=== PATIENT | female | born 1995 | race Caucasian/White ===

== ENCOUNTER 2020-01-22 18:40 | Emergency (ER) | payer OTHER, SELFPAY ==
[2020-01-22 18:52] VITALS: BP 125/71; PULSE 67; RESP 16; TEMP 37.2; O2SAT 100
--- NOTE | 2020-01-22 19:11 | ED.GENADULT ---
HPI - General Adult General Chief complaint: Upper Respiratory Infection Stated complaint: Chest pain Time Seen by Provider: 01/22/20 19:02 Source: patient and RN notes reviewed Mode of arrival: ambulatory Limitations: no limitations History of Present Illness HPI narrative: Patient presents today complaining of pressure in the chest and lower neck x2 days. She also reports a intermittent mild nonproductive cough. Denies shortness of breath, abdominal pain, nausea or vomiting. Denies any URI symptoms. She currently rates her pain 4/10. She reports exercise-induced asthma, depression and anxiety. Patient did go to the gym yesterday with this pain and states it worsened afterwards. MD complaint: Chest pressure Related Data Home Medications Medication Instructions Recorded Confirmed fluoxetine [Prozac] 10 mg PO DAILY 01/22/20 01/22/20 norethindrone-e.estradiol-iron [Lo 1 tablet PO DAILY 01/22/20 01/22/20 Loestrin Fe] Allergies Allergy/AdvReac Type Severity Reaction Status Date / Time ciprofloxacin Allergy Intermediate hives Verified 01/22/20 18:59 Review of Systems Review of Systems: Narrative: CONSTITUTIONAL: Denies body aches, fever, chills, or sweats. EYES: Denies visual changes, redness, or discharge. ENT: Denies rhinorrhea, congestion, sore throat, or otalgia. CARDIOVASCULAR: Denies palpitations, or edema.+ Chest pressure RESPIRATORY: Denies cough or dyspnea. GASTROINTESTINAL: Denies abdominal pain, nausea, vomiting, or diarrhea. GENITOURINARY: Denies dysuria or hematuria. SKIN: Denies rash, itching, or wounds. MUSCULOSKELETAL: Denies back pain, joint pain, or myalgia. NEUROLOGIC: Denies headache, numbness, tingling, or weakness. PSYCH: Denies depression or anxiety. [facility] Past Medical History Medical History (Updated 01/22/20 @ 19:19 by Lesa Austin, ROLL HAULER, ) Anxiety Depression Family History Family History (Updated 07/25/14 @ 07:13 by DOCTOR UNKNOWN) Other Family history of arthritis Family history of malignant neoplasm Social History Social History Smoking status: Never smoker Alcohol intake: current Gender identity (if verbalized by the patient): Female Comments At time of signature, I have reviewed and agree with nursing past medical, surgical, social and family history unless otherwise noted. Please see nursing chart for further information. There is no relevant family history pertinent to the presenting complaint Exam Narrative: Exam Narrative: GENERAL: Well-appearing, well-nourished, and in no acute distress. HEAD: Normocephalic, atraumatic. EYES: EOMI. No redness or drainage. Conjunctivae normal. ENT: Mucous membranes pink and moist. Nares clear. No rhinorrhea. Throat normal. Uvula midline. NECK: Normal AROM. Supple. No lymphadenopathy. CHEST: No respiratory distress. Clear to auscultation. Upon palpation of the sternum, patient states she does have some tenderness. At the upper sternal area patient states, it feels like there is pressure or like a pill stuck in my throat. HEART: Regular rate and rhythm. No murmur appreciated. Normal peripheral pulses. ABDOMEN: Soft, nontender, nondistended, normal active bowel sounds. MUSCULOSKELETAL: No bony tenderness. EXTREMITIES: Normal range of motion. No edema. SKIN: Warm, dry, no rash. NEURO: No focal deficits. Alert and oriented x3. Gait steady. PSYCH: Normal affect. No signs of depression or anxiety. Course Vital Signs Vital signs: Vital Signs Temperature 99.0 F 01/22/20 18:52 Pulse Rate 67 01/22/20 18:52 Respiratory Rate 16 01/22/20 18:52 Blood Pressure 125/71 01/22/20 18:52 Pulse Oximetry 100 01/22/20 18:52 Temperature 99.0 F 01/22/20 18:52 Pulse Rate 67 01/22/20 18:52 Respiratory Rate 16 01/22/20 18:52 Blood Pressure 125/71 01/22/20 18:52 Pulse Oximetry 100 01/22/20 18:52 Reviewed. Pt has been instructed to follow up with her PCP regarding her elevated blood
== END 2020-01-22 19:22 | disposition home or self-care (01) ==
PROVIDERS: Emergency Provider Nurse Practitioner
DX: K21.9 Gastro-esophageal reflux disease without esophagitis (principal)
CPT/HCPCS: 99211; G0463

== ENCOUNTER 2021-07-28 12:26 | Emergency (ER) | payer BC, SELFPAY ==
[2021-07-28 12:39] VITALS: BP 129/77; PULSE 79; RESP 18; TEMP 36.8; O2SAT 100
--- NOTE | 2021-07-28 13:41 | ED.FEMALEGU ---
HPI - Female Genitourinary General Chief complaint: Urogenital-Female Stated complaint: UTI Source: patient and RN notes reviewed Mode of arrival: ambulatory History of Present Illness HPI Narrative: This is a 26-year-old female who presented to urgent care today with complaints of for frequency urgency and painful urination developed on Tuesday. Patient notes that she did take Azo at home with no relief. The patient denies SOB, CP, palpitation, extremity numbness, lightheadedness, dizziness, constipation, diarrhea, chills, fever, hematuria, abdominal pain, suprapubic tenderness. Related Data Home Medications Medication Instructions Recorded Confirmed norethindrone-e.estradiol-iron [Lo 1 tablet PO DAILY 01/22/20 01/22/20 Loestrin Fe] venlafaxine 75 mg PO DAILY 07/28/21 07/28/21 Allergies Allergy/AdvReac Type Severity Reaction Status Date / Time ciprofloxacin Allergy Intermediate hives Verified 07/28/21 13:04 Review of Systems Review of Systems: A 14 organ system Review of Systems was performed and pertinent positives included in the HPI, otherwise remaining ROS is negative. [facility] Past Medical History Medical History (Updated 07/28/21 @ 13:34 by EVERTON Ordonez) Anxiety Depression Family History Family History (Updated 07/25/14 @ 07:13 by DOCTOR UNKNOWN) Other Family history of arthritis Family history of malignant neoplasm Social History Social History Smoking status: Never smoker Alcohol intake: current Gender identity (if verbalized by the patient): Female Exam Narrative: GENERAL: This is a well-nourished, well-developed patient, in no apparent distress. HEAD: normocephalic, atraumatic. EYES: PERRL. Sclera clear/white. Vision is grossly intact. EARS: External ears normal, auditory canals clear and without drainage, TMs normal without perforation. Hearing grossly intact. NOSE: External nose normal with no obvious nasal discharge, nares without redness, no rhinorrhea. THROAT: Mucous membranes moist, posterior pharynx clear. NECK: Neck supple, non-tender without lymphadenopathy, masses or thyromegaly. CARDIOVASCULAR: Regular rate and rhythm without murmurs, gallops, or rubs. RESPIRATORY: Clear to auscultation. Breath sounds equal bilaterally. No wheezes, rales, or rhonchi. GASTROINTESTINAL: Abdomen soft, non-tender, nondistended. Bowel sounds are active. No hepato-splenomegaly, or palpable masses. No guarding. CVA negative SKIN: warm, intact with no suspicious lesions or rash, good texture and turgor. NEURO: awake, alert, and oriented to person, place and time. There were no obvious focal neurologic abnormalities. Steady gait EXTREMITIES: Normal range of motion. No edema. No calf tenderness. Negative Homans sign bilaterally. BACK: Nontender without deformity or crepitance. No flank tenderness. Course Course Emergency Course: Patient will discharge home with Macrobid Vital Signs Vital signs: Vital Signs Temperature 98.3 F 07/28/21 12:39 Pulse Rate 79 07/28/21 12:39 Respiratory Rate 18 07/28/21 12:39 Blood Pressure 129/77 07/28/21 12:39 Pulse Oximetry 100 07/28/21 12:39 Temperature 98.3 F 07/28/21 12:39 Pulse Rate 79 07/28/21 12:39 Respiratory Rate 18 07/28/21 12:39 Blood Pressure 129/77 07/28/21 12:39 Pulse Oximetry 100 07/28/21 12:39 MDM - Female Genitourinary Differential Diagnosis Differential diagnosis: Likely urinary tract infection, bacterial vaginosis and vaginitis Lab Data Attestation: I reviewed the patient's lab results. Labs: Urine Glucose Negative Reference Range: Negative Urine Bilirubin Negative Reference Range: Negative Urine Ketone Negative Reference Range: Negative Urine Specific Olin 1.030
== END 2021-07-28 13:43 | disposition home or self-care (01) ==
PROVIDERS: Emergency Provider Nurse Practitioner; PCP Pediatrics
DX: N39.0 Urinary tract infection, site not specified (principal); F41.9 Anxiety disorder, unspecified; F32.9 Major depressive disorder, single episode, unspecified
CPT/HCPCS: 81003; 87086; 99213; G0463